=== PATIENT | male | born 1940 | race Caucasian/White ===

== ENCOUNTER 2020-02-25 00:07 | Inpatient (IN) | payer MEDICARE, OTHER ==
[2020-02-25] MEDS ORDERED: Acetaminophen 325 MG TAB PO PRN (04:44)
[2020-02-25] MEDS ORDERED: Ondansetron PF 4 MG/2 ML Vial IVP PRN (04:44)
[2020-02-25] MEDS ORDERED: Ondansetron ODT 4 MG TAB PO PRN (04:44)
[2020-02-25] MEDS ORDERED: Calcium Carbonate 500 MG ChewTAB PO PRN (04:44)
--- NOTE | 2020-02-25 04:45 | PDOC.FPRHP ---
- History of Present Illness History of Present Illness: 80 yo M that is COVID + is admitted for observation and ENT evaluation of peritonsillar abscess/parotiditis. Very difficult to obtain any history from patient as speech is difficult to understand. Patient reports cough and L face pain. Denies difficulty breathing, shortness of breath. COVID + test /, unknown if patient symptomatic or onset date. Review of ED record said he presented to ED 1 day prior and [facility] He was unable to participate in therapy and ws discharged back to hospital. Had L facial swelling, poor appetite, generalized weakness worsening over past week. No fever, chills, N/V, diarrhea. Has chronic cough. 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 ED Course: rocephin, azithro, clindamyicn, iopamidol, LR 750ml - Allergies/Adverse Reactions Allergies Allergy/AdvReac Type Severity Reaction Status Date / Time piroxicam Allergy Verified 02/25/20 04:44 terfenadine [From [place]] Allergy Verified 02/25/20 04:44 - Home Medications Medication Instructions Recorded Confirmed Type Cholecalciferol (Vitamin D3) 1 tab PO DAILY 02/25/20 02/25/20 History [Vitamin D3] Cyanocobalamin (Vitamin B-12) 1 tab PO DAILY 02/25/20 02/25/20 History [Vitamin B12] Glucosamine Sulfate 1 tab PO DAILY 02/25/20 02/25/20 History Magnesium Oxide [Magnesium] 1 tab PO DAILY 02/25/20 02/25/20 History Memantine HCl [Namenda] 10 mg PO DAILY 02/25/20 02/25/20 History [place]-3/DHA/EPA/Fish Oil [Fish Oil 1 tab PO DAILY 02/25/20 02/25/20 History EC 1,000 mg Softgel] Timolol [Betimol 0.5% Ophth 1 drop PO BID 02/25/20 02/25/20 History Solution] - History Unable to obtain hx from patient. Outside ED chart reviewed PMHx:chronic dyspnea, hx of colonic polyp, memory loss, prostate cancer PSHx: 2011 bilateral cataracts, suprapubic prostectomy, tonsillectomy FHx: mother and father unknown cancer, father-DM Social: No tobacco, alcohol, drug use. - Review of Systems General: denies: fever/chills, fatigue ENT: denies: nasal congestion, rhinorrhea Respiratory: reports: cough. denies: shortness of breath Cardiovascular: denies: chest pain, palpitation Gastrointestinal: denies: nausea, vomiting, diarrhea Genitourinary: reports: other (no change in urine output). denies: dysuria Skin: denies: rashes Musculoskeletal: reports: pain, swelling Neurological: denies: syncope, weakness - Vital signs BP: 115/69 HR: 77 RR: 20 Tmax: 98.3 Pox: 94% on 3L Wt: 74 kg - Physical Exam Constitutional: NAD HEENT: normocephalic and atraumatic, grossly normal vision, other (L sided facial swelling with induration from cheek to jaw bone. No erythema) Neck: supple Heart: RRR, normal S1/S2 Lungs: no respiratory distress, good air movement, no wheezing, no retractions ( crackles bilateral bases, limited exam with stethescope) Abdomen: soft, non-tender, no masses/distention Musculoskeletal: normal structure Neurological: no focal deficit Skin: capillary refill <2 seconds Heme/Lymphatic: no unusual bruising or bleeding FMR H&P: Results - Labs Result Diagrams: 02/25/20 05:09 02/25/20 05:09 FMR H&P: Upper Level - Plan 80 yo M is transferred for peritonsillar abscess and is admitted for observation , ENT consult. Peritonsillar abscess, parotiditis - CT showed L parotiditis and tonsillitis with 1.5cm abscess in tonsil. Rightward deviation of oropharynx but airway patent. Groundglass opacities in lung apices. - Lactic 2.36, procal was 0.28, trend in am - Blood cx drawn in outside ED - received rocephin, azithro, and clinda in outside ED. - Zosyn (02/24) - consult ENT COVID+ - on 4L O2, wean as tolerated - pt denies any difficulty breathing - pending crp, ferritin, dimer - dexamethasone daily, unsure symptom course or timing Elevated liver enzymes - AST 58, ALT 52 - am recheck pending Possible dementia - continue home namenda DANIEL vs CKD - Cr 1.13, trend this am IVF: LR @ 120 while NPO Diet: NPO until ENT evaluates Ppx: Lovenox Attending: [place] Dispo:Need to confirm code status and history with family in am. Consult ENT for evaluation. Continue to monitor respiratory status. Consulted CM, patient may be returning to [facility] on discharge. Addendum - Attending - Attending Attestation Date/Time: 02/25/20 8802 I personally evaluated the patient and discussed the management with Dr. Brown. I agree with the History, Examination, Assessment and Plan documented above with any addition or exceptions noted below. Patient here for ENT evaluation due to peritonsillar abscess and parotiditis. He is also known COVID positive. He has oxygen requirement at this time that we are not sure currently if it is new or not, will discuss with family. ENT consult, continue IV abx and steroids. Monitor respiratory status. Further mgmt pending clinical course.
[2020-02-25] MEDS: Lactated Ringer's 1,000 ML IV SCH ×3 (05:28→21:01)
[2020-02-25 05:53] LABS: ALT (SGPT) 34 U/L (8-55); AST (SGOT) 35 U/L (5-34); Albumin 2.8 g/dL (3.4-4.8); Alkaline Phosphatase 55 U/L (40-110); Anion Gap 12 mmol/L (10-20); BUN (Urea Nitrogen) 28 mg/dL (8.4-25.7); Bilirubin, Total 0.6 mg/dL (0.2-1.2); Calc. Creatinine Clearance 63 mL/min (70-130); Calcium 8.6 mg/dL (7.8-10.44); Carbon Dioxide 25 mmol/L (23-31); Chloride 105 mmol/L (98-107); Estimated GFR-MDRD 73; Globulin 3.3 g/dL (2.4-3.5); Glucose 125 mg/dL (83-110); Potassium 3.4 mmol/L (3.5-5.1); Protein, Total 6.1 g/dL (5.8-8.1); Sodium 139 mmol/L (136-145)
[2020-02-25 06:42] LABS: Hemoglobin 12.2 g/dL (14.0-18.0); Mean Corpuscular HGB CONC 32.5 g/dL (32.0-36.0); Mean Corpuscular Hemoglobin 30.4 pg (27.0-31.0); Mean Corpuscular Volume 93.5 fL (78.0-98.0); Mean Platelet Volume 8.1 fL (7.4-10.4); Platelet Count 349 thou/uL (130-400); RBC Distribution Width 12.6 % (11.5-14.5); Red Blood Cell (RBC) Count 3.99 mill/uL (4.70-6.10); White Blood Cell (WBC) Count 20.2 thou/uL (4.8-10.8)
[2020-02-25 06:43] LABS: Band 9 % (5-11); Lymphocytes 3 % (21-51); MDiff Complete? YES; Monocytes 1 % (0-10); Neutrophil 87 % (42-75)
[2020-02-25] MEDS: Cholecalciferol 1,000 UNITS (25 MCG) TAB PO SCH (08:41)
[2020-02-25] MEDS: Cyanocobalamin (Vitamin B-12) 1,000 MCG TAB PO SCH (08:41)
[2020-02-25] MEDS: Fish Oil 1,000 MG CAP PO SCH (08:41)
[2020-02-25] MEDS: Dexamethasone 4 MG TAB PO SCH (08:41)
[2020-02-25] MEDS: Enoxaparin Sodium 40 MG/0.4 ML SYRINGE SC SCH ×2 (08:41→20:13)
[2020-02-25] MEDS: Magnesium Oxide 400 MG TAB PO SCH (08:41)
[2020-02-25] MEDS ORDERED: Prevnar 13-Val Conj/PF 0.5 ML SYRINGE IM ONE (09:00)
[2020-02-25] MEDS ORDERED: GLUCOSAMINE SULFATE PO SCH (09:00)
[2020-02-25] MEDS ORDERED: Enoxaparin Sodium 40 MG/0.4 ML SYRINGE SC SCH (09:00)
[2020-02-25] MEDS ORDERED: EPINEPHrine 1 MG/10 ML Abboject SYRINGE ONE ×2 (09:17→09:18)
[2020-02-25] MEDS ORDERED: Sodium Bicarb 50 MEQ/50 ML Abboject 8.4% SYRINGE ONE ×2 (09:17→09:18)
[2020-02-25] MEDS: Timolol 0.5% Ophth Soln 5 ml Bottle EA EYE SCH ×2 (10:53→20:14)
[2020-02-25] MEDS: Piperacillin/Tazobactam 3.375 GM in Sodium Chloride 0.9% 100 ML IVPB SCH ×2 (11:20→16:14)
[2020-02-25] MEDS ORDERED: Clindamycin/D5W 600 MG in Premix Bag 1 BAG IVPB SCH (12:00)
--- NOTE | 2020-02-25 17:08 | CON ---
DATE OF CONSULTATION: 02/25/2020 REASON FOR CONSULTATION: COVID infection. HISTORY OF PRESENT ILLNESS: An 80-year-old gentleman who has a history of prostate cancer, in remission after prostatectomy, and [place] [facility]. He developed a fairly rapid onset of left-sided acute parotitis, and according to him, he developed very suddenly in one day approximately last week. The patient on 02/23 tested positive for COVID and apparently had been in [facility] and could not participate in therapy and was sent back to the hospital. Currently, Mr. Fernandez is awake. He has quite a bit of difficulty in expressing himself, part of it is some element of difficulty in finding words, but due to the significant dysarthria, it is hard to really distinguish between an expressive versus a receptive issue, and if it is a cognitive problem or if it is more of difficulty with the mechanics of putting together the sentences due to his respiratory problem. He seemed to be comfortable at rest. He denies any headaches. No chest pain or abdominal pain. He is voiding in the diaper. MEDICAL HISTORY: Not complete, but there is a history of: 1. Colonoscopies. 2. Prostate cancer, in remission after prostatectomy. 3. Tonsillectomy. 4. Cataracts. FAMILY HISTORY: Includes type 2 diabetes. SOCIAL HISTORY: Never smoker. [place] MEDICATION LIST: Currently, he is on: 1. Clindamycin. 2. Decadron. 3. Lovenox. 4. Fish oil. 5. Namenda. 6. Zofran. 7. Zosyn. PHYSICAL EXAMINATION: VITAL SIGNS: He has been afebrile, his O2 sats ranged from 94 to 92 on 3 L, his BP is 140/82, pulse 79, and respirations 18. SKIN: No skin lesions noted. No lymphadenopathy. HEENT: Ocular movements conjugate. Somewhat pale conjunctivae. There is marked enlargement of the left parotid gland. He did not acknowledge any tenderness on palpation. It is somewhat indurated as usual for cases of parotitis. The inside of his mouth is dry. I could not visualize any drainage from the parotid duct after massaging the gland. He still has quite a few teeth in place with the expected decay and gum disease. NECK: Supple. No jugular vein distention. LUNGS: Symmetric air entry. No obvious crackles or wheezing. HEART: S1 and S2. Regular rate. ABDOMEN: Soft, not distended or tender. No ascites. No bladder distention. EXTREMITIES: No joint inflammatory activity. He is able to move extremities. Plantar responses are flexor. He has hammertoes. Pulses are 1+ in dorsalis pedis. NEUROLOGIC: He is awake, establishes eye contact. He tries to answer questions , but appears to have a quite significant cognitive problems. LABORATORY DATA: His white cell count is 20,000 hemoglobin 12, and platelets 349. D-dimer 7.02. Chemistry with sodium 139 and creatinine 0.99. Ferritin was 2200. CRP was 31. Albumin 2.8. The patient had a CT of the neck, which showed left parotitis and tonsillitis with a 1.5 cm fluid collection centered within the tonsil, but largely obstructed by artifact and rightward deviation of oropharynx with patent airway and this study showed peripheral ground-glass opacities in the visualized lung apices, suspicious of a viral pneumonia and I think this precipitated the COVID test, which was positive. ASSESSMENT: 1. Prostate cancer, in remission after prostatectomy. 2. Parotitis with peritonsillar abscess, associated with the process. 3. Serendipitously identified COVID infection. The duration of the COVID infection is not clear and we will go ahead and submit an antibody panel to see if SARS- CoV-2 antibody is positive. If it is, then it would be more likely to be at least 8 to 10 days old infection. He is a kind of borderline for remdesivir and he is already on Decadron 6 mg. Parotitis is likely bacterial (MSSA, MRSA, gram-neg orgs) Zosyn should cover well this process, but we will add vancomycin and discontinue clindamycin. He has a peritonsilar inflamm process as well but airway is preserved. Job ID: [id number] [facility]
[2020-02-25] MEDS: Vancomycin HCl 750 MG in Sodium Chloride 0.9% 250 ML 250 ML IVPB SCH (17:56)
[2020-02-25 20:12] LABS: SARS-CoV-2 IgG Ab Reactive (NonReactive); SARS-CoV-2 IgG Index 4.91 S/CO (< 1.40)
[2020-02-25] MEDS ORDERED: Vancomycin HCl 1 GM in Sodium Chloride 0.9% 250 ML 300 ML IVPB SCH (21:00)
[2020-02-26] MEDS: Piperacillin/Tazobactam 3.375 GM in Sodium Chloride 0.9% 100 ML IVPB SCH ×5 (00:03→23:16)
[2020-02-26] MEDS: Lactated Ringer's 1,000 ML IV SCH ×3 (05:04→21:13)
[2020-02-26 05:06] LABS: Vancomycin, Trough 5.7 ug/mL
[2020-02-26] MEDS: Vancomycin HCl 750 MG in Sodium Chloride 0.9% 250 ML 250 ML IVPB SCH (05:25)
[2020-02-26] MEDS: Vancomycin HCl 1.25 GM in Sodium Chloride 0.9% 250 ML 250 ML IVPB SCH ×2 (05:43→17:10)
[2020-02-26] MEDS: Magnesium Oxide 400 MG TAB PO SCH (07:54)
[2020-02-26] MEDS: Fish Oil 1,000 MG CAP PO SCH (07:54)
[2020-02-26] MEDS: Dexamethasone 4 MG TAB PO SCH (07:54)
[2020-02-26] MEDS: Enoxaparin Sodium 40 MG/0.4 ML SYRINGE SC SCH ×2 (07:55→20:40)
[2020-02-26] MEDS: Cholecalciferol 1,000 UNITS (25 MCG) TAB PO SCH (07:55)
[2020-02-26] MEDS: Cyanocobalamin (Vitamin B-12) 1,000 MCG TAB PO SCH (07:55)
[2020-02-26] MEDS: Timolol 0.5% Ophth Soln 5 ml Bottle EA EYE SCH ×2 (07:55→20:41)
--- NOTE | 2020-02-26 08:14 | PDOC.FM ---
- Subjective Subjective: Patient doing okay this morning, is up in bed reading books. Complains of a cough, denies any SOB or chest pain. Says the left side of his face is curing oven tender but is improving. Does still have sore throat. Patient has been witnessed by nursing staff while eating to have coughing and what appears to be choking fits. During these times the patient states he is fine. O2 sats have been noted to go to low 80s when this occurs. - Objective MAR Reviewed: Yes Vital Signs & Weight: Vital Signs (12 hours) Temp Pulse Resp BP Pulse Ox 02/26/20 07:55 81 02/26/20 04:50 98.5 F 81 19 121/78 91 L 02/26/20 00:00 97.9 F 68 19 165/75 H 92 L 02/25/20 20:15 98.3 F 63 18 143/63 H 93 L 02/25/20 20:14 63 02/25/20 20:13 93 L Weight Weight 74.389 kg I&O: 02/25/20 02/26/20 02/27/20 06:59 06:59 06:59 Intake Total 1500 Balance 1500 Result Diagrams: 02/26/20 08:51 02/26/20 08:51 Phys Exam - Physical Examination Constitutional: NAD HEENT: moist MMs sig. swollen left face over parotid gland with resolving overlying erythema Neck: supple Respiratory: no wheezing, clear to auscultation bilateral Cardiovascular: RRR, no significant murmur Gastrointestinal: soft, no distention Musculoskeletal: no edema, pulses present Neurological: normal sensation, moves all 4 limbs slow speech and word finding difficulty present Psychiatric: normal affect, A&O x 3 Skin: no rash, normal turgor Dx/Plan (1) Peritonsillar abscess Code(s): J36 - PERITONSILLAR ABSCESS Status: Acute (2) Parotiditis Code(s): K11.20 - SIALOADENITIS, UNSPECIFIED Status: Acute (3) Acute respiratory failure with hypoxia Code(s): J96.01 - ACUTE RESPIRATORY FAILURE WITH HYPOXIA Status: Acute (4) COVID-19 Code(s): U07.1 - COVID-19 Status: Acute (5) History of prostate cancer Code(s): Z85.46 - PERSONAL HISTORY OF MALIGNANT NEOPLASM OF PROSTATE Status: Acute (6) Vocal cord paralysis Code(s): J38.00 - PARALYSIS OF VOCAL CORDS AND LARYNX, UNSPECIFIED Status: Acute - Plan Plan: 80 yo M is transferred for peritonsillar abscess and is admitted for observation , ENT consult. Peritonsillar abscess, parotiditis - CT showed L parotiditis and tonsillitis with 1.5cm abscess in tonsil. Rightward deviation of oropharynx but airway patent. Groundglass opacities in lung apices. - Lactic 2.36, procal was 0.28, trend in am - Blood cx drawn in outside ED - received rocephin, azithro, and clinda in outside ED. - Zosyn (02/24) and Vancomycin (02/24) - consult ENT-Dr. Kendall, appreciate recs -no surgery needed at this time, continue IV ABx Zosyn, add Clindamycin. -Dr. Kendall to re-eval patient after 48 hrs on ABx -Clindamycin was initially given but then discontinued by ID-Dr. Andino and started Vancomycin given concern for high risk MRSA - consult Speech Therapy Acute Hypoxic Respiratory Failure 2/2 COVID+ PNA - unsure symptom course or timing, tested positive on February 23 at [facility] - on 4L O2, wean as tolerated - pt denies any difficulty breathing - CRP 31.9, ferritin 2296 - D-dimer 7.02, will trend > 4.25 today - Procal 0.28 > 0.81 > 0.70 - dexamethasone daily - Consult ID-Dr. Andino for Remdesevir & Plasma, appreciate recs -held off on giving either medication due to suspicion that symptom course is closer to day 8-10 -COVID19 Antibody testing reactive Vocal Cord Paralysis -patient with slow speech, possible word finding difficulties -family reports history that patient was receiving Botox injections for TMJ disorder, had vocal cord paralysis as complication from this, speech difficulty since Elevated liver enzymes - AST 58, ALT 52 - monitor on AM labs Possible dementia - pt's family denies this but patient on home med Namenda, will continue DANIEL - Cr 1.13 on admssion, likely 2/2 dehydration - monitor on AM labs Social: Patient came from [facility]. Case Mgmt consulted for placement. IVF: SL Diet: Full liquids Ppx: Lovenox Code status: FULL Dispo: Stable, admitted to inpatient on medical floor. ENT & ID consulted, appreciate recs. Continue to monitor respiratory status. Anticipate discharge in <48 hrs. Addendum - Attending - Attending Attestation Date/Time: 02/26/20 5582 I personally evaluated the patient and discussed the management with Dr. Alejo. I agree with the History, Examination, Assessment and Plan documented above with any addition or exceptions noted below. Patient with some decline overnight. O2 needs have increased, ABG this morning showed moderate hypoxemia on room air. Will recheck with him on supplemental O2. His parotiditis and peritonsillar swelling are improved. [employer] on board due to swallowing difficulties, will need to discuss with family regarding comfort feeds with aspiration risk versus NPO status and invasive feeding. Clarified code status this morning, still FULL CODE and if further declines may need more invasive respiratory support. ID on board.
[2020-02-26 08:33] LABS: Actual Bicarbonate (HCO3a) 20.6 mEq/L (22-28); Base Excess (BEa) -0.1 mEq/L (-2.0 to +3.0); Hemoglobin (Hb) 13.9 g/dL (14.0-18.0); Potassium - ABG Lab 3.33 mmol/L (3.70-5.30)
[2020-02-26 08:37] LABS: pH, Arterial 7.55 (7.35-7.45)
[2020-02-26 08:38] LABS: ALV-art Gradient 74.455 (0-20); CO2 Tension 24.3 mmHg (35.0-45.0); O2 Tension (PaO2), arterial 44.9 mmHg (> 60.0); Puncture Site LRA
[2020-02-26 09:12] LABS: Mean Corpuscular HGB CONC 33.5 g/dL (32.0-36.0); Mean Corpuscular Hemoglobin 31.8 pg (27.0-31.0); Mean Corpuscular Volume 94.9 fL (78.0-98.0); Platelet Count 415 thou/uL (130-400); RBC Distribution Width 12.7 % (11.5-14.5); White Blood Cell (WBC) Count 21.9 thou/uL (4.8-10.8)
[2020-02-26 09:27] LABS: ALT (SGPT) 32 U/L (8-55); AST (SGOT) 33 U/L (5-34); Albumin 2.5 g/dL (3.4-4.8); Alkaline Phosphatase 61 U/L (40-110); Anion Gap 10 mmol/L (10-20); BUN (Urea Nitrogen) 33 mg/dL (8.4-25.7); Bilirubin, Total 0.7 mg/dL (0.2-1.2); Calc. Creatinine Clearance 75 mL/min (70-130); Calcium 8.7 mg/dL (7.8-10.44); Carbon Dioxide 26 mmol/L (23-31); Chloride 108 mmol/L (98-107); Estimated GFR-MDRD 89; Globulin 3.4 g/dL (2.4-3.5); Glucose 130 mg/dL (83-110); Potassium 3.2 mmol/L (3.5-5.1); Protein, Total 5.9 g/dL (5.8-8.1); Sodium 141 mmol/L (136-145)
[2020-02-26 12:21] LABS: Base Excess (BEa) -0.1 mEq/L (-2.0 to +3.0); CO2 Tension 32.8 mmHg (35.0-45.0); Calcium, Ionized (arterial) 1.23 mmol/L (1.12-1.30); Carboxyhemoglobin (COHb) 0.3 gm% (0.0-3.0); Hemoglobin (Hb) 13.2 g/dL (14.0-18.0); Potassium - ABG Lab 3.01 mmol/L (3.70-5.30); pH, Arterial 7.46 (7.35-7.45)
[2020-02-26 12:22] LABS: Puncture Site RRA
[2020-02-26 12:32] LABS: Band 8 % (5-11); Burr Cells MODERATE= 6-15 cells (100X) (0-1/hpf); Lymphocytes 4 % (21-51); MDiff Complete? YES; Monocytes 2 % (0-10); Neutrophil 85 % (42-75); Platelet Morphology Comment Appears Increased; Polychromasia SLIGHT = 2-3 cells (100X) (0-2/hpf); Reactive Lymphocytes 1 % (0-10)
--- NOTE | 2020-02-26 13:19 | RAD ---
CHEST 1 VIEW: Date: 02/26/2020 HISTORY: COVID pneumonia. FINDINGS: Alveolar and ground-glass opacity changes noted over the left lateral chest mid and upper region. The re are also some patchy parenchymal changes in the right lower lobe and left lower lobe. These findin gs are certainly compatible with COVID pneumonia. No significant pleural effusion. No cardiomegaly. A therosclerosis of aorta. Old granulomatous disease. IMPRESSION: Evidence for bilateral COVID pneumonia. POS: [facility]
[2020-02-26 20:08] VITALS: TEMP 98.3
[2020-02-26] MEDS ORDERED: Haloperidol Lactate 5 MG/ML VIAL SLOW IVP PRN (20:09)
[2020-02-26] MEDS ORDERED: Haloperidol Lactate 5 MG/ML VIAL IM ONE (20:45)
[2020-02-27 01:23] LABS: Actual Bicarbonate (HCO3a) 19.9 mEq/L (22-28); Calcium, Ionized (arterial) 1.31 mmol/L (1.12-1.30); Hemoglobin (Hb) 13.8 g/dL (14.0-18.0); Potassium - ABG Lab 5.88 mmol/L (3.70-5.30); pH, Arterial 6.77 (7.35-7.45)
[2020-02-27 01:24] LABS: CO2 Tension 141.2 mmHg (35.0-45.0); O2 Tension (PaO2), arterial 51.9 mmHg (> 60.0); Puncture Site LRA
[2020-02-27] MEDS ORDERED: Sodium Bicarb 50 MEQ/50 ML Abboject 8.4% SYRINGE ONE (01:35)
[2020-02-27 01:52] LABS: Actual Bicarbonate (HCO3a) 19.9 mEq/L (22-28); Base Excess (BEa) -7.8 mEq/L (-2.0 to +3.0); CO2 Tension 49.4 mmHg (35.0-45.0); Calcium, Ionized (arterial) 1.14 mmol/L (1.12-1.30); Carboxyhemoglobin (COHb) 0.3 gm% (0.0-3.0); Hemoglobin (Hb) 12.3 g/dL (14.0-18.0); O2 Tension (PaO2), arterial 101.3 mmHg (> 60.0); Potassium - ABG Lab 3.23 mmol/L (3.70-5.30)
[2020-02-27 01:55] LABS: Puncture Site LRA; pH, Arterial 7.22 (7.35-7.45)
[2020-02-27] MEDS ORDERED: Ventilator Sedation Protocol 1 EACH FS SCH (02:01)
[2020-02-27] MEDS ORDERED: Acetaminophen 650 MG Suppository PR PRN (02:01)
[2020-02-27] MEDS ORDERED: Fentanyl BOLUS 250 ML IVPB PRN (02:13)
[2020-02-27] MEDS ORDERED: DISCONTINUE PREVIOUS NARCOTIC PAIN MEDICATIONS AND BENZODIAZEPINES FS SCH (02:13)
[2020-02-27] MEDS ORDERED: Propofol BOLUS 1,000 MG/100 ML VIAL IV PRN (02:13)
[2020-02-27] MEDS ORDERED: Propofol 1,000 MG/100 ML VIAL IV PRN (02:13)
[2020-02-27] MEDS ORDERED: fentaNYL Citrate/PF 2,000 MCG in Sodium Chloride 0.9% 60 ML IV SCH (02:13)
[2020-02-27] MEDS ORDERED: Morphine 2 MG/ML VIAL SLOW IVP PRN (02:13)
[2020-02-27] MEDS ORDERED: Norepinephrine 8 MG/0.9% NS 250 ML ONE (02:17)
[2020-02-27] MEDS ORDERED: Norepinephrine 8 MG/0.9% NS 250 ML IVPB SCH (02:24)
[2020-02-27] MEDS: Lactated Ringer's 1,000 ML IV SCH ×2 (02:40→10:45)
[2020-02-27 02:43] LABS: Band 11 % (5-11); Hemoglobin 13.2 g/dL (14.0-18.0); Lymphocytes 15 % (21-51); MDiff Complete? YES; Mean Corpuscular HGB CONC 31.6 g/dL (32.0-36.0); Mean Corpuscular Hemoglobin 31.3 pg (27.0-31.0); Mean Corpuscular Volume 99.1 fL (78.0-98.0); Mean Platelet Volume 8.8 fL (7.4-10.4); Monocytes 1 % (0-10); Neutrophil 73 % (42-75); Platelet Count 311 thou/uL (130-400); RBC Distribution Width 12.9 % (11.5-14.5); White Blood Cell (WBC) Count 24.2 thou/uL (4.8-10.8)
[2020-02-27 02:56] LABS: ALT (SGPT) 43 U/L (8-55); AST (SGOT) 59 U/L (5-34); Albumin 2.6 g/dL (3.4-4.8); Alkaline Phosphatase 71 U/L (40-110); Anion Gap 18 mmol/L (10-20); BUN (Urea Nitrogen) 33 mg/dL (8.4-25.7); Bilirubin, Total 0.5 mg/dL (0.2-1.2); Calc. Creatinine Clearance 68 mL/min (70-130); Calcium 8.6 mg/dL (7.8-10.44); Carbon Dioxide 15 mmol/L (23-31); Chloride 111 mmol/L (98-107); Estimated GFR-MDRD 80; Globulin 3.5 g/dL (2.4-3.5); Glucose 165 mg/dL (83-110); Magnesium 2.3 mg/dL (1.6-2.6); Phosphorus 4.6 mg/dL (2.3-4.7); Protein, Total 6.1 g/dL (5.8-8.1); Sodium 140 mmol/L (136-145)
[2020-02-27] MEDS ORDERED: EPINEPHrine 4 MG in Dextrose 5% in Water 250 ML IV SCH (03:00)
[2020-02-27] MEDS ORDERED: Potassium Chloride 40 MEQ in Sodium Chloride 0.9% 250 ML 250 ML IVPB SCH (03:00)
[2020-02-27] MEDS ORDERED: Potassium Chloride 40 MEQ in Premix Bag 1 BAG IVPB SCH (03:15)
--- NOTE | 2020-02-27 03:27 | PDOC.BPN ---
- Brief Progress Note Code Note Crit Care from 0110am until 0300am. Lesly blue alert heard and responded to room. Arrived to room to find nursing team performing chest compression with RT providing ventilation with bag mask. Donned Covid PPE and entered room. Nurse reports that she found the patient non -responsive and not breathing then initiated code blue alert. The patient was noted to have asystole at first rhythm check. Following 2 rounds of epinephrine and 1 dose of bicarb, the patient achieved ROSC. Anesthesia arrived and placed ET tube. Placement confirmed by bilat breath sounds with auscultation and colormetric CO2 device. Patient transported to CCU. Shortly after arrival, developed PEA. Chest compressions restarted. 1 dose of epinephrine and 2 additional doses of bicarb given. ROSC quickly achieved. Chest xray taken. labs drawn, additional ABG obtained, EKG obtained and reviewed. Sinus rhythm. V5 and V6 showed some St seg depression. Initial ABG showed acute resp acidosis with superimposed metabolic acidosis. Follow up ABGs showed significant improvement with ventilation and, perfusion, and bicarb therapy. Additiaonl doses of bicarb given post ROSC. Right femoral CVC paced via ultsrasound guidance (see separate note for details). Ultimately levophed started for hypotension. The charge nurse kept the family informed (, Dominique, and adult children) during the code. Afterwards I called them personally , describing the code event and care plan. They expressed appreciation. I advised nursing that family wished to speak over the phone with Mr. Fernandez. The nursing team advised they would find a way to achieve that. Code scribe documentation signed.
[2020-02-27 04:00] LABS: CKMB 7.5 ng/mL (0-6.6)
[2020-02-27] MEDS: Vancomycin HCl 1.25 GM in Sodium Chloride 0.9% 250 ML 250 ML IVPB SCH (05:21)
[2020-02-27] MEDS: Piperacillin/Tazobactam 3.375 GM in Sodium Chloride 0.9% 100 ML IVPB SCH ×2 (05:21→10:44)
[2020-02-27 06:44] LABS: CKMB 8.9 ng/mL (0-6.6)
--- NOTE | 2020-02-27 07:45 | RAD ---
Portable frontal chest radiograph: 02/27/2020 COMPARISON: 02/26/2020 HISTORY: Evaluate chest following intubation FINDINGS: There is a tiny new pneumothorax on the right with an apical component measuring 5 mm and a lateral component measuring 6 mm. There is an endotracheal tube in place. There is interstitial density with superimposed groundglass opacity in the right base and right upper lobe region, with worsened when compared to prior imaging. There is confluent alveolar opacity within the lateral aspect of the mid left lung zone and the left lung apex, worsened as well. IMPRESSION: Worsening pulmonary parenchymal opacity consistent with multifocal infectious pneumonitis . Question Covid pneumonia. New endotracheal tube. Interval development of right-sided pneumothorax. Nurse Flo was made aware via phone by Dr. Bonds at 7:40 AM 02/27/2020.
[2020-02-27 08:49] LABS: Lactic Acid 3.4 mmol/L (0.5-2.2)
[2020-02-27] MEDS ORDERED: Famotidine/PF 20 mg/2ml Vial SLOW IVP SCH (09:00)
[2020-02-27] MEDS ORDERED: Dexamethasone 6 MG in Sodium Chloride 0.9% 50 ML IVPB SCH (09:00)
--- NOTE | 2020-02-27 09:43 | RAD ---
PORTABLE CHEST 1 VIEW: Date: 02/27/2020 Time: 0852 hours HISTORY: Pneumothorax. COMPARISON: Earlier exam at 0115 hours from same date. FINDINGS/IMPRESSION: A small right pneumothorax is seen with mild interval increase in size since the comparison study. In terval worsening of the patchy opacities is noted in the lung wills on either side. Endotracheal tub e remains in place. A nasogastric tube has been placed in the interim. POS: [facility]
--- NOTE | 2020-02-27 09:58 | PDOC.FM ---
- Subjective Subjective: Patient currently intubated and sedated. Please see Dr. Calderon's note from overnight regarding cardiac arrest event that occurred around 0115 this morning. Patient currently having myoclonic jerks, no corneal reflex or withdrawal to pain. No gag reflex with suctioning by nurse. Palliative Care team consulted this morning to attempt arranging for family to come to hospital. - Objective Vital Signs & Weight: Vital Signs (12 hours) Pulse Resp BP BP Pulse Ox 02/27/20 08:00 31 H 94 L 02/27/20 06:00 25 H 02/27/20 04:00 25 H 02/27/20 02:01 74 26 H 100/61 94 L 02/27/20 02:00 97 02/26/20 23:32 65 18 189/89 H 93 L Weight Weight 85.3 kg Most Recent Monitor Data Heart Rate from ECG 78 NIBP 145/77 NIBP BP-Mean 99 Respiration from ECG 46 SpO2 94 I&O: 02/26/20 02/27/20 02/28/20 06:59 06:59 06:59 Intake Total 1500 844.5 Output Total 105 10 Balance 1500 739.5 -10 Result Diagrams: 02/27/20 01:22 02/27/20 01:22 Phys Exam - Physical Examination intubated, sedated HEENT: moist MMs pupils fixed and dilated, no corneal reflex Neck: supple ventilated breath sounds throughout Cardiovascular: RRR, no significant murmur Gastrointestinal: soft, no distention Musculoskeletal: pulses present no withdrawal to pain Deviation from normal: sedated Skin: no rash Dx/Plan (1) Peritonsillar abscess Code(s): J36 - PERITONSILLAR ABSCESS Status: Acute (2) Parotiditis Code(s): K11.20 - SIALOADENITIS, UNSPECIFIED Status: Acute (3) Acute respiratory failure with hypoxia Code(s): J96.01 - ACUTE RESPIRATORY FAILURE WITH HYPOXIA Status: Acute (4) COVID-19 Code(s): U07.1 - COVID-19 Status: Acute (5) History of prostate cancer Code(s): Z85.46 - PERSONAL HISTORY OF MALIGNANT NEOPLASM OF PROSTATE Status: Acute (6) Vocal cord paralysis Code(s): J38.00 - PARALYSIS OF VOCAL CORDS AND LARYNX, UNSPECIFIED Status: Acute - Plan Plan: 80 yo M is transferred for peritonsillar abscess and is admitted for observation , ENT consult. Anoxic Brain Injury, suspected -patient went into asystole around 0115 overnight (See code notes), transferred to CCU -physical exam shows no signs of corneal reflex or gag reflex, no withdrawal to pain; myoclonic jerks present & worsening -Consult Palliative Care Team for family discussion -patient still FULL code, will reach out to family again this morning for further discussion in conjunction with Palliative Care -intubated and sedated -Levophed @ 10 -CXR with pneumothorax on right (5mm x 4mm), repeat CXR this AM is stable -trop 0.376, CKMB 8.9, likely due to demand ischemia after cardiac arrest overnight Peritonsillar abscess, parotiditis - CT showed L parotiditis and tonsillitis with 1.5cm abscess in tonsil. Rightward deviation of oropharynx but airway patent. Groundglass opacities in lung apices. - Lactic 2.36, procal was 0.28, trend in am - Blood cx drawn in outside ED - received rocephin, azithro, and clinda in outside ED. - Zosyn (02/24) and Vancomycin (02/24) - consult ENT-Dr. Kendall, appreciate recs -no surgery needed at this time, continue IV ABx Zosyn, add Clindamycin. -Dr. Kendall to re-eval patient after 48 hrs on ABx -Clindamycin was initially given but then discontinued by ID-Dr. Andino and started Vancomycin given concern for high risk MRSA - consult Speech Therapy--patient at sig. aspiration risk, placed on NPO statu Acute Hypoxic Respiratory Failure 2/2 COVID+ PNA - unsure symptom course or timing, tested positive on February 23 at [facility] - on 4L O2, wean as tolerated - pt denies any difficulty breathing - CRP 31.9, ferritin 2296 - D-dimer 7.02, will trend > 4.25 today - Procal 0.28 > 0.81 > 0.70 - dexamethasone daily - Consult ID-Dr. Andino for Remdesevir & Plasma, appreciate recs -held off on giving either medication due to suspicion that symptom course is closer to day 8-10 -COVID19 Antibody testing reactive Vocal Cord Paralysis -patient with slow speech, possible word finding difficulties -family reports history that patient was receiving Botox injections for TMJ disorder, had vocal cord paralysis as complication from this, speech difficulty since Elevated liver enzymes - AST 58, ALT 52 - monitor on AM labs Possible dementia - pt's family denies this but patient on home med Namenda, will continue DANIEL - Cr 1.13 on admssion, likely 2/2 dehydration - monitor on AM labs Social: Patient came from [facility]. Palliative Care Team consulted for assistance with family discussion. IVF: SL Diet: NPO Ppx: Lovenox Code status: FULL Dispo: Stable, admitted to inpatient in CCU. ENT & ID consulted, appreciate recs. Palliative care team on board. Continue to monitor clinical status. Family meeting planned for later today. Addendum - Attending - Attending Attestation Date/Time: 02/27/20 1250 I personally evaluated the patient and discussed the management with Dr. Alejo. I agree with the History, Examination, Assessment and Plan documented above with any addition or exceptions noted below. Patient with respiratory and cardiac arrest overnight. Suspect worsening respiratory status 2/2 COVID-19 pneumonia that worsened rapidly overnight. Based on his ABG results, I suspect he was anoxic for several minutes. Apparently he was in asystole but ROSC achieved. He is now sedated with no reflexes and increasingly frequent myoclonic jerks. Suspect catastrophic anoxic brain injury. Family updated and plans to make decision regarding termination of care later today. Lona consulted for vent mgmt. ID on board previously and did not recommend plasma or Remdesevir, and he certainly would not be a candidate for those therapies at this time.
[2020-02-27] MEDS: Enoxaparin Sodium 40 MG/0.4 ML SYRINGE SC SCH (10:44)
[2020-02-27] MEDS: Timolol 0.5% Ophth Soln 5 ml Bottle EA EYE SCH (10:46)
[2020-02-27 10:53] VITALS: BP 152/93
[2020-02-27] MEDS ORDERED: Vecuronium 10 MG VIAL IVP PRN (11:35)
[2020-02-27] MEDS: Lorazepam 2 MG/ML VIAL SLOW IVP PRN ×5 (12:28→14:01)
--- NOTE | 2020-02-27 12:43 | EKG ---
Test Reason : STAT Blood Pressure : / mmHG Vent. Rate : 098 BPM Atrial Rate : 100 BPM P-R Int : 186 ms QRS Dur : 096 ms QT Int : 376 ms P-R-T Axes : 066 -42 -47 degrees QTc Int : 480 ms Undetermined rhythm Left axis deviation Incomplete right bundle branch block intermittant LBBB Prolonged QT Abnormal ECG No previous ECGs available Confirmed by ANDRAE SARMIENTO, DR. Bingham ([id number]) on 02/27/2020 12:43:12 PM Referred By: Confirmed By:DR. Otilia ABEBE MD
--- NOTE | 2020-02-27 12:43 | EKG ---
Test Reason : STAT Blood Pressure : / mmHG Vent. Rate : 090 BPM Atrial Rate : 090 BPM P-R Int : 160 ms QRS Dur : 098 ms QT Int : 384 ms P-R-T Axes : 058 -33 -24 degrees QTc Int : 469 ms Normal sinus rhythm Left axis deviation Incomplete right bundle branch block Nonspecific ST and T wave abnormality Prolonged QT Abnormal ECG When compared with ECG of 27-FEB-2020 01:42, (Unconfirmed) Previous ECG has undetermined rhythm, needs review Confirmed by DR. Otilia ABEBE MD ([id number]) on 02/27/2020 12:43:25 PM Referred By: Confirmed By:DR. Otilia ABEBE MD
[2020-02-27 13:22] VITALS: BMI 24.7
[2020-02-27] MEDS ORDERED: Morphine 4 MG/ML VIAL ONE (14:05)
[2020-02-27] MEDS ORDERED: Morphine 4 MG/ML VIAL SLOW IVP PRN (14:07)
--- NOTE | 2020-02-27 14:11 | PDOC.FMACP ---
Advance Care Planning - Problem (1) Palliative care encounter Status: Acute Code(s): Z51.5 - ENCOUNTER FOR PALLIATIVE CARE (2) Acute respiratory failure with hypoxia Status: Acute Code(s): J96.01 - ACUTE RESPIRATORY FAILURE WITH HYPOXIA (3) COVID-19 Status: Acute Code(s): U07.1 - COVID-19 (4) History of prostate cancer Status: Acute Code(s): Z85.46 - PERSONAL HISTORY OF MALIGNANT NEOPLASM OF PROSTATE - Note Participants: family, palliative care Summary: Palliative Care discussed Advanced Care Planning with patient and daughters , allowed an opportunity to decline. The diagnosis, prognosis and goals of care were discussed. Appropriate forms and documentation to accomplish the goals of care were discussed. All questions were answered. The family has elected to transition Mr Fernandez to a DNAR and compassionately extubate secondary to his known wishes. He had stated that he did not want to be on life support. DNAR completed. Spiritual care consulted and with family. Please also refer to Javad Shelby RNpump assembler notes in note section. Time Spent (mins): 45
--- NOTE | 2020-02-27 19:53 | DIS ---
DATE OF ADMISSION: 02/25/2020 DATE OF DISCHARGE: 02/27/2020 SUMMARY: ATTENDING: Jad Pineda MD RESIDENT: Oly Alejo DO DATE OF : February 27, 2020. TIME OF : 1419 hours. CAUSE OF : 1. Anoxic brain injury. 2. Acute hypoxic respiratory failure secondary to COVID-19. SECONDARY DIAGNOSES: 1. Left parotiditis. 2. Left peritonsillar abscess. 3. Vocal cord paralysis. HISTORY OF PRESENT ILLNESS/HOSPITAL COURSE: The patient is an 80-year-old male , who presented to [facility] Emergency Department on February 25, 2020 with complaint of left-sided facial swelling and pain along with a cough. At that time, patient denied any difficulty breathing or shortness of breath. The patient had a COVID positive test on February 23 with report of a cough for at least a week prior to this. The patient was recently discharged from [facility] 1 day prior to admission. 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 In the Emergency Department, the patient was given Rocephin, azithromycin, clindamycin, and lactated Ringer bolus. An outside ED had performed a CT scan the day before, which showed left parotiditis and tonsillitis with a 1.5 cm abscess on the left tonsil. Airway was patent. Ground-glass opacities in the lung apices were noted. The patient was admitted to the medical floor and started on Zosyn antibiotic therapy. ENT, Dr. Kendall was consulted for further input. He felt like we should attempt a trial of 48 hours of antibiotics to see if any improvement in the tonsillar abscess. Did not feel like the patient would need surgery at this time. The patient initially did well with improved left facial swelling and improved pain reported on the morning of February 25. Dr. Andino with ID was consulted for patient' s COVID-19 diagnosis, he ultimately determined the patient was not a candidate for convalescent plasma or Remdesevir therapy. It was noted in the morning of February 25, that the patient's oxygen requirement increased on nasal cannula from 2 to 4 L. Around lunch time, he was noted by nursing staff to have a cough and choking. He was placed on n.p.o. status and Speech evaluated him. O2 saturations were noted to go into the low 80s while he was talking or eating. Later on in the afternoon, the patient was noted to be more tachypneic and appeared to have increased difficulty breathing. The patient was placed on Ventimask at that time. Subsequent ABG showed improvement. The patient's family was contacted and informed of increasing need for oxygen, verified that the patient was still a full code at that time. At approximately 0115 hours on February 26, the patient was found by nursing staff to not be breathing. He soon after was noted to be in asystole heart rhythm. CPR was initiated and ROSC was achieved. The patient was transferred to the CCU at that time. It was then in the next hour, the patient had a cardiac arrest again. CPR was performed and ROSC was achieved for second time. At that time, family was contacted again and wished for the patient to remain a full code until they could get to the hospital to see him. On the morning of February 27, 2020, the patient's family was contacted by the Palliative Care team. It was arranged for family to come to the hospital at 1 p.m. The patient's family arrived and signed DNAR orders at that time. At approximately 1400 hours, the patient was extubated. The patient stopped breathing spontaneously shortly after. Asystole occurred at 1418 hours. The patient was declared at 1419 hours. Palliative care team will arrange with Home for further care. Job ID: [id number] MTDD
--- NOTE | 2020-02-28 07:32 | PDOC.CNTRL ---
Central Line Procedure Note - Procedure Date: 02/27/20 Time: 02:00 - PreProcedure Diagnosis: 1. Acute hypoxic respiratory failure 2/2 COVID-19 infection 2. Parotiditis/peritonsillar abscess 3. Hypotension s/p ROSC x2 - PostProcedure Diagnosis: 1. Same as above 2. Same as above 3. same as above - Description Focused site: femoral vein: Right Ultrasound guidance: Yes Patient tolerated procedure: no complications Procedure in Details: INDICATION: hypotension s/p ROSC x2 PROCEDURE SODA CLERK: Dr. Nury Cleary MD ATTENDING PHYSICIAN: Dr. Jhonatan Calderon MD in Attendance Ultrasound Used: Y CONSENT: Formal consent was not obtained prior to the procedure as it was an urgent procedure required to stabilize the patient who was FULL CODE. PROCEDURE SUMMARY: My hands were washed immediately prior to the procedure. I wore a respirator, protective eyewear, and sterile gloves throughout the procedure. The RIGHT inguinal region was prepped using chlorhexidine scrub and draped in sterile fashion using a full drape and sterile probe cover employed. The femoral pulse was identified. Using the US guidance, the introducer needle was then inserted medial to the femoral artery, inferior to the inguinal crease and into the femoral vein. Venous blood was withdrawn. The syringe was removed and a guidewire was advanced into the introducer needle. A small incision was made at the skin surface with a scalpel and the introducer needle was exchanged for a dilator over the guidewire. After appropriate dilation was obtained, the dilator was exchanged over the wire for a central venous catheter. The wire was removed and the catheter was sutured in place at ~15 cm. A sterile sorbaview shield was placed over the catheter at the insertion site. The patient tolerated the procedure without any hemodynamic compromise. At time of procedure completion, all ports aspirated and flushed properly. Estimated blood loss is ~10mL.
== END 2020-02-27 16:00 | disposition expired | DRG 208 ==
LOC: T4-A 00:08 → OBSVTOIN 12:58 → CCU 02-27 01:35
PROVIDERS: ADMIT Family Medicine; ATTEND Family Medicine
PROC: 5A12012 Performance of Cardiac Output, Single, Manual (ICD-10-PCS; principal; 2020-02-27)
PROC: 8E0ZXY6 Isolation (ICD-10-PCS; 2020-02-27)
PROC: 0BH17EZ Insertion of Endotracheal Airway into Trachea, Via Natural or Artificial Opening (ICD-10-PCS; 2020-02-27)
PROC: 5A1935Z Respiratory Ventilation, Less than 24 Consecutive Hours (ICD-10-PCS; 2020-02-27)
PROC: 02HV33Z Insertion of Infusion Device into Superior Vena Cava, Percutaneous Approach (ICD-10-PCS; 2020-02-27)
PROC: 3E043XZ Introduction of Vasopressor into Central Vein, Percutaneous Approach (ICD-10-PCS; 2020-02-27)
DX: U07.1 COVID-19 (principal); J96.01 Acute respiratory failure with hypoxia; J36 Peritonsillar abscess; N17.9 Acute kidney failure, unspecified; G93.1 Anoxic brain damage, not elsewhere classified; J93.9 Pneumothorax, unspecified; E87.2 Acidosis; Z51.5 Encounter for palliative care; Z66 Do not resuscitate; R79.89 Other specified abnormal findings of blood chemistry; G83.9 Paralytic syndrome, unspecified; E86.0 Dehydration; N18.9 Chronic kidney disease, unspecified; Z85.46 Personal history of malignant neoplasm of prostate; Z98.42 Cataract extraction status, left eye; Z98.41 Cataract extraction status, right eye
CPT/HCPCS: 36415; 71045; 80053; 80202; 82553; 82728; 82805; 83605; 83735; 84100; 84145; 84484; 85007; 85025; 85027; 85379; 85520; 86140; 86769; 92950; 93005; 93010; 94002; 96372; 96374; G0378; J0171; J1100; J1630; J1650; J2060; J2270; J2543; J3370; J3480; J3490; J7050; J7070; J8540; S0028